=== PATIENT | male | born 1995 | race Asian ===

== ENCOUNTER 2021-03-09 23:54 | Emergency (ER) | payer OTHER ==
[~2021-03-09] VITALS: Ht 157.5 cm; Wt 79.4 kg
--- NOTE | 2021-03-10 00:06 | NUR ---
PT BIBS C/O HAVING AN ASTHMA ATTACK S/P NOT HAVING ANY MORE ALBUTEROL. PT REQUESTING FOR MED REFILL. STATES HE IS SOB, SPO2: 95% ON ROOM AIR. NO RETRACTIONS SHOWN. PT ALERT AND ORIENTED X3, AMBULATORY.
[2021-03-10] MEDS ORDERED: methylPREDNISolone SOD SUCC 125 MG/2ML VIAL ONE (00:22)
[2021-03-10] MEDS ORDERED: IPRATROPIUM NEB FS 0.5 MG/2.5 ML AMPUL.NEB ONE (00:29)
[2021-03-10] MEDS ORDERED: ALBUTEROL FS 2.5 MG/3 ML VIAL.NEB ONE (00:29)
[2021-03-10] MEDS ORDERED: IV NS 0.9% 1,000 ML IV ONE (00:30)
[2021-03-10] MEDS ORDERED: ALBUTEROL FS 2.5 MG/3 ML VIAL.NEB CONTNEB ONE (00:30)
[2021-03-10] MEDS ORDERED: IPRATROPIUM NEB FS 0.5 MG/2.5 ML AMPUL.NEB NEB ONE (00:30)
[2021-03-10] MEDS ORDERED: methylPREDNISolone SOD SUCC 125 MG/2ML VIAL IV ONE (00:30)
[2021-03-10] MEDS ORDERED: PRED50TA PO (01:32)
[2021-03-10] MEDS ORDERED: FLUT12AE15 IH (01:33)
[2021-03-10] MEDS ORDERED: ALBU8.5H8 INH (01:34)
--- NOTE | 2021-03-10 02:37 | NUR ---
Patient discharged to home in stable condition. Written and verbal after care instructions given. Patient verbalizes understanding of instruction.
[2021-03-10 02:38] VITALS: BP 128/77
== END 2021-03-10 02:38 | disposition home or self-care (01) ==
LOC: ER 23:56
DX: J45.909 Unspecified asthma, uncomplicated (principal); F17.200 Nicotine dependence, unspecified, uncomplicated; Z60.2 Problems related to living alone; Z79.899 Other long term (current) drug therapy
CPT/HCPCS: 71045; 93005; 94644; 96361; 96374; 99285; J2930; J7030